=== PATIENT | male | born 1965 | race Caucasian/White ===

== ENCOUNTER 2019-10-27 12:17 | Emergency (ER) | payer MEDICARE, OTHER ==
[~2019-10-27] VITALS: Ht 175.3 cm; Wt 88.5 kg
[2019-10-27] MEDS ORDERED: CIALIS2.5 MG PO (12:34)
--- NOTE | 2019-10-27 16:02 | EKG ---
[facility] [address] [facility] [place], [place] [address] Signed Normal sinus rhythm Normal ECG No previous ECGs available Confirmed by JOE LEE MD [id number] on 10/27/2019 4:02:22 PM Electronically Signed By: JOE LEE MD 10/27/19 1602 PATIENT NAME: ARLEEN PAK Electrocardiogram DATE OF : 63 PHYSICIAN: JOE LEE MD REPORT #: [id number] REPORT IS CONFIDENTIAL AND NOT TO BE RELEASED WITHOUT AUTHORIZATION
== END 2019-10-27 16:56 | disposition home or self-care (01) ==
LOC: ED 12:17
DX: M54.10 Radiculopathy, site unspecified (principal); I10 Essential (primary) hypertension; Z79.899 Other long term (current) drug therapy
CPT/HCPCS: 36415; 80053; 84484; 85025; 93005; 93010; 99283-25